=== PATIENT | male | born 1925 | race Caucasian/White ===

== ENCOUNTER 2016-09-16 10:14 | Inpatient (IN) | payer OTHER ==
[~2016-09-16] VITALS: Ht 165.1 cm; Wt 82.7 kg
[2016-09-16] MEDS ORDERED: MORPHINE SULFATE 4 MG/ML SYRG IV ONE (11:00)
[2016-09-16] MEDS ORDERED: ONDANSETRON HCL 4 MG/2 ML VIAL IV ONE (11:00)
[2016-09-16 11:19] LABS: Basophils # (auto) 0 uL; Basophils % (auto) 0.2 % (0.0-2.0); Eosinophils # (auto) 0 uL; Hematocrit 34.9 % (41.0-53.0); Hemoglobin 11.2 g/dL (13.5-17.5); Lymphocytes # (auto) 0.4 uL; Lymphocytes % (auto) 3.6 % (10.0-50.0); Mean Corpuscular Hemoglobin 28.9 pg (28.0-32.0); Mean Corpuscular Volume 90.3 fL (80.0-100.0); Mean Platelet Volume 7.3 fL (7.4-10.4); Monocytes # (auto) 0.8 uL; Monocytes % (auto) 6.6 % (0.0-12.0); Neutrophils # (auto) 10.7 uL; Neutrophils % (auto) 89.6 % (37.0-80.0); Platelet Count (auto) 425 10^3/uL (140-450); Red Cell Distribution Width 15.2 % (11.6-16.0); White Blood Cell 11.9 10^3/uL (4.4-10.8)
[2016-09-16 11:35] LABS: INR 1.15 (0.9-1.15); Partial Thromboplastin Time 25.3 sec (22.64-33.71); Prothrombin Time 11.8 sec (9.37-12.3)
[2016-09-16 11:57] LABS: Albumin 3.1 g/dL (3.4-5.0); BUN/Creatinine Ratio 33.1; Bilirubin, Total 1.5 mg/dL (0.2-1.0); Magnesium 2.6 mg/dL (1.6-2.6); Potassium 4.2 mmol/L (3.5-5.1); Total Protein 7.8 g/dL (6.4-8.2)
[2016-09-16] MEDS ORDERED: FUROSEMIDE 20 MG/2 ML VIAL IV ONE (13:15)
[2016-09-16] MEDS: ONDANSETRON HCL 4 MG/2 ML VIAL IV PRN ×2 (14:15→17:08)
[2016-09-16] MEDS: MORPHINE SULF INJ 2 MG/ML SYRINGE 1ML IV PRN ×3 (14:17→22:46)
[2016-09-16 15:49] VITALS: BP 122/68
[2016-09-16] MEDS ORDERED: LEVO200I5 PO (16:45)
[2016-09-16] MEDS ORDERED: POTA10TA34 PO (16:45)
[2016-09-16] MEDS ORDERED: METO5TAB56 PO (16:45)
[2016-09-16] MEDS ORDERED: TORS20TA20 PO (16:45)
[2016-09-16 17:00] VITALS: BP 122/68
[2016-09-16 19:54] LABS: Urine Bilirubin Negative (Negative); Urine Color Yellow (Yellow); Urine Glucose Normal (Normal); Urine Ketone Negative (Negative); Urine Mucus FEW (None Seen); Urine Nitrite Negative (Negative); Urine RBC 778 /hpf (0 - 3); Urine Squamous Epithelial Cell FEW /hpf (<5); Urine Urobilinogen Normal (Negative); Urine pH 5.5 (5.0-8.0)
[2016-09-16 19:55] LABS: Urine Blood 3+ /uL (Negative)
[2016-09-16 22:00] VITALS: BP 136/69
[2016-09-17] VITALS (20 sets, daily range): BP systolic 89–168; BP diastolic 47–84
[2016-09-17] MEDS: MORPHINE SULF INJ 2 MG/ML SYRINGE 1ML IV PRN (06:25)
[2016-09-17 06:29] LABS: Basophils # (auto) 0 uL; Basophils % (auto) 0.1 % (0.0-2.0); Eosinophils # (auto) 0 uL; Eosinophils % (auto) 0.4 % (0.0-7.0); Hematocrit 31.9 % (41.0-53.0); Hemoglobin 10.3 g/dL (13.5-17.5); Lymphocytes # (auto) 0.8 uL; Lymphocytes % (auto) 6.6 % (10.0-50.0); Mean Corpuscular Hemoglobin 29.5 pg (28.0-32.0); Mean Corpuscular Hgb Conc. 32.3 g/dL (32.0-36.0); Mean Corpuscular Volume 91.1 fL (80.0-100.0); Mean Platelet Volume 7.5 fL (7.4-10.4); Monocytes # (auto) 1.4 uL; Monocytes % (auto) 12.5 % (0.0-12.0); Neutrophils # (auto) 9.3 uL; Neutrophils % (auto) 80.4 % (37.0-80.0); Platelet Count (auto) 389 10^3/uL (140-450); Red Cell Distribution Width 15.6 % (11.6-16.0); White Blood Cell 11.6 10^3/uL (4.4-10.8)
[2016-09-17] MEDS ORDERED: PROPOFOL 10 MG/ML 20 ML IV ONE (07:02)
[2016-09-17 07:03] LABS: Albumin 2.9 g/dL (3.4-5.0); BUN/Creatinine Ratio 31.6; Calcium 8.5 mg/dL (8.5-10.1); Potassium 4.5 mmol/L (3.5-5.1)
[2016-09-17 07:05] LABS: Bilirubin, Total 1.3 mg/dL (0.2-1.0); Total Protein 7.5 g/dL (6.4-8.2)
[2016-09-17] MEDS ORDERED: ceFAZolin 1GM 2 GM in D5W 5% 100 ML IV ONE (07:30)
[2016-09-17] MEDS ORDERED: BUPIVACAINE W/ EPINEPH 0.25% INJ 50ML MDV ONE (07:50)
[2016-09-17] MEDS ORDERED: ceFAZolin 1GM/50ML D5W 100 ML IV ONE (08:06)
[2016-09-17] MEDS ORDERED: HYDROCORTISONE SOD SUCC 100 MG/2ML INJ VIAL ONE (08:51)
[2016-09-17] MEDS ORDERED: ETOMIDATE (2MG/ML) 20ML VIAL IV ONE (08:51)
[2016-09-17] MEDS ORDERED: MIDAZOLAM HCL 1MG/1ML-2 ML VIAL ONE (08:52)
[2016-09-17] MEDS ORDERED: fentaNYL CITRATE 100 MCG/2 ML VL ONE (08:52)
[2016-09-17] MEDS ORDERED: FUROSEMIDE 20 MG/2 ML VIAL IV SCH (10:00)
[2016-09-17] MEDS: BUPIVACAINE 0.25% INJ 50ML VIAL ONE ×2 (10:09→10:40)
[2016-09-17] MEDS ORDERED: METOCLOPRAMIDE HCL 5MG/ml INJ 2ml VIAL ONE (10:42)
[2016-09-17] MEDS ORDERED: ONDANSETRON HCL 4 MG/2 ML VIAL ONE (10:42)
[2016-09-17] MEDS ORDERED: HYDROmorphone HCL 2 MG/ML VL IV PRN ×2 (12:15→12:45)
[2016-09-17] MEDS ORDERED: ONDANSETRON HCL 4 MG/2 ML VIAL IV ONE (12:15)
[2016-09-17] MEDS: ceFAZolin 1GM/50ML D5W 50 ML IV SCH ×2 (14:00→20:00)
[2016-09-17 19:15] LABS: Hematocrit 29.6 % (41.0-53.0); Hemoglobin 9.4 g/dL (13.5-17.5)
[2016-09-18] VITALS (32 sets, daily range): BP systolic 106–149; BP diastolic 52–77
[2016-09-18] MEDS: ceFAZolin 1GM/50ML D5W 50 ML IV SCH ×3 (03:00→14:00)
[2016-09-18 03:58] LABS: Basophils # (auto) 0 uL; Basophils % (auto) 0.1 % (0.0-2.0); DEFINITIVE VIEW TRANSMISSION; Eosinophils # (auto) 0 uL; Eosinophils % (auto) 0.2 % (0.0-7.0); Hematocrit 27.6 % (41.0-53.0); Hemoglobin 8.9 g/dL (13.5-17.5); Lymphocytes # (auto) 0.9 uL; Lymphocytes % (auto) 6.7 % (10.0-50.0); Mean Corpuscular Hemoglobin 29.8 pg (28.0-32.0); Mean Corpuscular Volume 92.9 fL (80.0-100.0); Mean Platelet Volume 7.7 fL (7.4-10.4); Monocytes # (auto) 2.2 uL; Monocytes % (auto) 15.8 % (0.0-12.0); Neutrophils # (auto) 10.8 uL; Neutrophils % (auto) 77.2 % (37.0-80.0); Platelet Count (auto) 343 10^3/uL (140-450)
[2016-09-18 04:23] LABS: Potassium 4.3 mmol/L (3.5-5.1)
[2016-09-18 04:27] LABS: BUN/Creatinine Ratio 38.7
[2016-09-18] MEDS: MEPERIDINE HCL (25 MG/ML) 1ML VIAL IV PRN ×3 (09:36→16:58)
[2016-09-18] MEDS: ONDANSETRON HCL 4 MG/2 ML VIAL IV PRN ×2 (09:38→16:58)
[2016-09-18] MEDS: KETOROLAC TROMETH 30 MG/ML 1ML VIAL IV PRN ×3 (10:07→16:58)
[2016-09-19 04:36] VITALS: BP 101/57
[2016-09-19 06:21] LABS: Basophils # (auto) 0 uL; Basophils % (auto) 0.1 % (0.0-2.0); Eosinophils # (auto) 0.3 uL; Eosinophils % (auto) 2.1 % (0.0-7.0); Hematocrit 27.5 % (41.0-53.0); Hemoglobin 8.9 g/dL (13.5-17.5); Lymphocytes # (auto) 0.8 uL; Lymphocytes % (auto) 5.9 % (10.0-50.0); Mean Corpuscular Hemoglobin 29.7 pg (28.0-32.0); Mean Corpuscular Hgb Conc. 32.5 g/dL (32.0-36.0); Mean Corpuscular Volume 91.3 fL (80.0-100.0); Mean Platelet Volume 7.7 fL (7.4-10.4); Monocytes # (auto) 1.3 uL; Monocytes % (auto) 10.4 % (0.0-12.0); Neutrophils # (auto) 10.6 uL; Neutrophils % (auto) 81.5 % (37.0-80.0); Platelet Count (auto) 301 10^3/uL (140-450); Red Cell Distribution Width 15.2 % (11.6-16.0); White Blood Cell 12.9 10^3/uL (4.4-10.8)
[2016-09-19 06:35] LABS: BUN/Creatinine Ratio 30.5; Calcium 7.4 mg/dL (8.5-10.1)
[2016-09-19] MEDS ORDERED: SODIUM CHLORIDE 0.9% 1,000 ML IV ONE (09:30)
[2016-09-19] MEDS: KETOROLAC TROMETH 30 MG/ML 1ML VIAL IV PRN ×2 (12:30→18:32)
[2016-09-19 13:07] VITALS: BP 104/57
[2016-09-19] MEDS: SODIUM CHLORIDE 0.9% 1,000 ML IV SCH (16:45)
[2016-09-19 22:00] VITALS: BP 108/50
[2016-09-20] MEDS: SODIUM CHLORIDE 0.9% 1,000 ML IV SCH (04:25)
[2016-09-20 05:00] VITALS: BP 109/53
[2016-09-20 06:02] LABS: Basophils # (auto) 0 uL; Basophils % (auto) 0.1 % (0.0-2.0); Eosinophils # (auto) 0.3 uL; Hematocrit 27.8 % (41.0-53.0); Lymphocytes # (auto) 0.7 uL; Lymphocytes % (auto) 6.4 % (10.0-50.0); Mean Corpuscular Hemoglobin 29.8 pg (28.0-32.0); Mean Corpuscular Hgb Conc. 32.4 g/dL (32.0-36.0); Mean Corpuscular Volume 91.9 fL (80.0-100.0); Mean Platelet Volume 7.8 fL (7.4-10.4); Monocytes # (auto) 1.2 uL; Monocytes % (auto) 11.4 % (0.0-12.0); Neutrophils # (auto) 8.3 uL; Neutrophils % (auto) 79.1 % (37.0-80.0); Platelet Count (auto) 315 10^3/uL (140-450); Red Cell Distribution Width 15.1 % (11.6-16.0); White Blood Cell 10.5 10^3/uL (4.4-10.8)
[2016-09-20 06:32] LABS: BUN/Creatinine Ratio 47.2; Calcium 7.7 mg/dL (8.5-10.1); Potassium 4.7 mmol/L (3.5-5.1)
[2016-09-20 07:30] VITALS: BP 118/58
[2016-09-20 07:46] LABS: Basophils # (auto) 0 uL; Basophils % (auto) 0.2 % (0.0-2.0); Eosinophils # (auto) 0.3 uL; Lymphocytes # (auto) 0.8 uL; Lymphocytes % (auto) 7.3 % (10.0-50.0); Mean Corpuscular Hemoglobin 29.6 pg (28.0-32.0); Mean Corpuscular Hgb Conc. 32.1 g/dL (32.0-36.0); Mean Corpuscular Volume 92.2 fL (80.0-100.0); Mean Platelet Volume 7.8 fL (7.4-10.4); Monocytes # (auto) 1.2 uL; Monocytes % (auto) 11.5 % (0.0-12.0); Neutrophils # (auto) 8.3 uL; Platelet Count (auto) 331 10^3/uL (140-450); Red Cell Distribution Width 15.1 % (11.6-16.0); White Blood Cell 10.7 10^3/uL (4.4-10.8)
[2016-09-20 08:02] LABS: BUN/Creatinine Ratio 47.8; Potassium 4.7 mmol/L (3.5-5.1)
[2016-09-20] MEDS: KETOROLAC TROMETH 30 MG/ML 1ML VIAL IV PRN ×2 (09:32→15:34)
[2016-09-20 11:30] VITALS: BP 113/52
[2016-09-20 16:06] VITALS: BP 147/67
[2016-09-20 16:36] VITALS: BP 113/63
== END 2016-09-20 17:00 | DRG 480 ==
LOC: ER 10:24 → TELE 10:25 → TELE-EAST 15:15 → ICU WEST 09-17 13:49 → TELE-WESTW 09-18 20:00
PROVIDERS: ADMIT Internal Medicine; ATTEND Internal Medicine
PROC: 0MQN0ZZ Repair Right Knee Bursa and Ligament, Open Approach (ICD-10-PCS; 2016-09-17)
PROC: 30233N1 Transfusion of Nonautologous Red Blood Cells into Peripheral Vein, Percutaneous Approach (ICD-10-PCS; 2016-09-17)
PROC: 0QSB04Z Reposition Right Lower Femur with Internal Fixation Device, Open Approach (ICD-10-PCS; principal; 2016-09-17 09:10)
DX: S72.401A Unspecified fracture of lower end of right femur, initial encounter for closed fracture (principal); I21.4 Non-ST elevation (NSTEMI) myocardial infarction; I13.0 Hypertensive heart and chronic kidney disease with heart failure and stage 1 through stage 4 chronic kidney disease, or unspecified chronic kidney disease; I25.10 Atherosclerotic heart disease of native coronary artery without angina pectoris; I48.2 Chronic atrial fibrillation; I50.9 Heart failure, unspecified; N18.9 Chronic kidney disease, unspecified; I27.2 Other secondary pulmonary hypertension; I77.819 Aortic ectasia, unspecified site; S40.021A Contusion of right upper arm, initial encounter; M19.90 Unspecified osteoarthritis, unspecified site; E78.5 Hyperlipidemia, unspecified; W19.XXXA Unspecified fall, initial encounter; Y93.89 Activity, other specified; Z79.01 Long term (current) use of anticoagulants; Z95.1 Presence of aortocoronary bypass graft; Z95.3 Presence of xenogenic heart valve; I25.2 Old myocardial infarction; Z95.2 Presence of prosthetic heart valve; Z98.49 Cataract extraction status, unspecified eye; Y92.89 Other specified places as the place of occurrence of the external cause
CPT/HCPCS: 36415; 71010; 73060; 73502; 76001; 80048; 80053; 81001; 83735; 84484; 85014; 85018; 85025; 85610; 85730; 86850; 86900; 86901; 86920; 87081; 93005; 93306; 94761; 96372; 96374; 96375; 97530; C1713; C1769; J0690; J1885; J2250; J2405; J2704; J3490; J7060